=== PATIENT | male | born 1975 | race Caucasian/White ===

== ENCOUNTER 2017-02-22 09:40 | Outpatient (CLI) | payer OTHER ==
[2017-02-22 11:08] LABS: Hemoglobin 15.4 g/dL (14.0-18.0); Mean Corpuscular Hemoglobin 31.5 pg (27.0-31.0); Mean Corpuscular Volume 92.8 fl (80.0-94.0); Mean Platelet Volume 7.7 fL (7.4-10.4); Platelet Count 270 thou/uL (130-400); RBC Distribution Width 13.2 % (11.5-14.5); Red Blood Cell (RBC) Count 4.89 mill/uL (4.70-6.10); White Blood Cell (WBC) Count 8.1 thou/uL (4.8-10.8)
[2017-02-22 11:14] LABS: INR-International Normal Ratio 0.9; PTT 28.6 SEC (22.9-36.1); Prothrombin Time 12.7 SEC (12.0-14.7)
[2017-02-22 11:26] LABS: Anion Gap 14 mmol/L (10-20); BUN (Urea Nitrogen) 11 mg/dL (8.9-20.6); Calc. Creatinine Clearance 0 mL/min (70-130); Calcium 9.8 mg/dL (7.8-10.44); Carbon Dioxide 27 mmol/L (22-29); Chloride 100 mmol/L (98-107); Estimated GFR-MDRD Greater than 90; Glucose 107 mg/dL (70-105); Potassium 4.3 mmol/L (3.5-5.1); Sodium 137 mmol/L (136-145)
--- NOTE | 2017-02-22 17:53 | EKG ---
Test Reason : Blood Pressure : / mmHG Vent. Rate : 081 BPM Atrial Rate : 081 BPM P-R Int : 172 ms QRS Dur : 100 ms QT Int : 372 ms P-R-T Axes : 049 056 031 degrees QTc Int : 432 ms Normal sinus rhythm Normal ECG No previous ECGs available Confirmed by ANGEL PLEITEZ, DR. Palencia ([id number]) on 02/22/2017 5:52:55 PM Referred By: LOCO Confirmed By:DR. Slime ORTIZ MD
== END 2017-02-22 09:41 | disposition home or self-care (01) ==
LOC: LABBT 09:40
PROVIDERS: ATTEND Surgery
DX: Z01.818 Encounter for other preprocedural examination (principal); M51.26 Other intervertebral disc displacement, lumbar region; M48.061 Spinal stenosis, lumbar region without neurogenic claudication
CPT/HCPCS: 80048; 85027; 85610; 85730; 93005; 93010

== ENCOUNTER 2017-03-02 07:15 | Day surgery (SDC) | payer OTHER ==
[2017-02-22 10:03] VITALS: BMI 33.2
[2017-03-02] MEDS ORDERED: Midazolam HCl 2 mg/2 ml Vial ONE (08:40)
[2017-03-02] MEDS ORDERED: Sodium Chloride 0.9% 10 ML ONE (09:30)
[2017-03-02] MEDS ORDERED: Thrombin 5000 UNITS/5 ML VIAL ONE (09:31)
[2017-03-02] MEDS ORDERED: Bacitracin Zinc Ointment 30 gm TUBE ONE (09:31)
[2017-03-02] MEDS ORDERED: CEFAZOLIN/Water 2 GM/20 ML SYRINGE ONE (10:42)
[2017-03-02] MEDS ORDERED: Fentanyl 250 MCG/5 ML VIAL ONE (10:50)
[2017-03-02] MEDS ORDERED: SUGAMMADEX SODIUM 200 MG/2 ML VIAL ONE (11:19)
[2017-03-02] MEDS ORDERED: Rocuronium Bromide 50 MG/5 ML VIAL ONE (12:11)
[2017-03-02] MEDS ORDERED: Glycopyrrolate 0.2 MG/ML 5 ML SYRINGE ONE ×2 (12:41→13:41)
[2017-03-02] MEDS ORDERED: PHENYLEPHRINE-NS 100 MCG/ML 10 ML SYRINGE ONE (12:41)
[2017-03-02] MEDS ORDERED: Lidocaine 1% PF 5 ML VIAL ONE (12:41)
[2017-03-02] MEDS ORDERED: Dexamethasone 20 MG/5 ML VIAL ONE (12:41)
[2017-03-02] MEDS ORDERED: Ondansetron HCl/PF 4 MG/2 ML Vial ONE (12:41)
[2017-03-02] MEDS ORDERED: PROPOFOL 200 MG/20 ML VIAL ONE (12:41)
[2017-03-02] MEDS ORDERED: Promethazine HCl 25 MG/ML VIAL SLOW IVP PRN (13:44)
[2017-03-02] MEDS ORDERED: Ondansetron HCl/PF 4 MG/2 ML Vial IVP PRN ×2 (13:44→14:13)
[2017-03-02] MEDS ORDERED: HYDROmorphone 2 MG/ML VIAL SLOW IVP PRN (13:44)
[2017-03-02] MEDS ORDERED: Promethazine HCl 25 MG/ML VIAL IM PRN ×2 (13:44→14:13)
[2017-03-02] MEDS ORDERED: Meperidine HCl/PF 25 MG/ML VIAL SLOW IVP PRN (13:44)
[2017-03-02] MEDS ORDERED: Morphine Sulfate 2 MG/ML SYRINGE SLOW IVP PRN (13:44)
[2017-03-02] MEDS ORDERED: Milk Of Magnesia 30 ML UDCUP PO PRN (14:13)
[2017-03-02] MEDS ORDERED: traMADol HCl 50 MG TAB PO PRN (14:13)
[2017-03-02] MEDS ORDERED: Acetaminophen 325 MG TAB PO PRN (14:13)
[2017-03-02] MEDS ORDERED: Mag-Al 1200 mg/1200 mg/30 ML UDCUP PO PRN (14:13)
[2017-03-02] MEDS ORDERED: Fleet Enema 133 ML BOT PR PRN (14:13)
[2017-03-02] MEDS ORDERED: Bisacodyl 10 MG SUPP PR PRN (14:13)
[2017-03-02] MEDS ORDERED: Fentanyl 100 MCG/2 ML VIAL ONE (14:45)
--- NOTE | 2017-03-02 14:54 | OP ---
OR: 12 WOUND TYPE: Type 1 wound. SURGEON: Richie Diop M.D. MANAGER EMERGENCY DEPARTMENT: Adonis Jimenez PA-C PREPROCEDURE DIAGNOSES: Lumbar stenosis with disk extrusion with low back and right greater than lef t leg pain. POSTPROCEDURE DIAGNOSES: Lumbar stenosis with disk extrusion with low back and right greater than le ft leg pain. PROCEDURES PERFORMED: 1. L4-L5 laminectomy, partial facetectomy, and foraminotomies of the L4-L5 nerve roots, right side L 4-L5 diskectomy. 2. L5-S1 laminectomy, partial facetectomy, and foraminotomies. 3. Use of operative microscope for microdissection. DESCRIPTION OF PROCEDURE: After informed consent was obtained from the patient, the patient was brou ght to OR 12. Proper patient pause and identification was carried out. He was placed under excellen t general endotracheal anesthesia. Before flipping the patient prone, it was identified that the pat ient had a large likely abdominal hernia with the prior suture from surgery that was an appendectomy that reportedly occurred years ago. Evidently, the patient was unaware of this and that had for the last 4 months scrotal enlargement. I asked Dr. Perez to evaluate this and he diagnosed this hernia and we all felt it safe to proceed with surgery. As such, the patient was placed prone. All approp riate points were padded. We identified the L4, L5, S1 dorsal spines and lamina. A linear anabella was made over this region and this area was sterilely cleansed, prepared, and draped. Proper patient basil se and identification was carried out. The wound was then opened with a combination of sharp, monopo lar and blunt dissection. The L4, L5, S1 dorsal spines and lamina were exposed. Localization film c onfirmed our area of interest. We then performed an L4-L5, L5-S1 laminectomies, partial facetectomie s, foraminotomies for decompression of the L4, L5 and S1 nerve roots. The microscope was then nadine t in the field and working over the shoulder of the right L5 nerve root, identified disk material, th is was removed. There were portions of the disk that are more firm as well. We achieved excellent d ecompression of the common dural tube and all the nerve roots at L4, L5, and S1. Copious irrigation occurred. Hemostasis was maximized throughout. There was no spinal fluid leak. The wound was then closed in anatomic layers following the sprinkling of vancomycin powder. The patient then emerged fr om anesthesia.
[2017-03-02] MEDS: Cyclobenzaprine 10 MG TAB PO PRN (16:32)
[2017-03-02] MEDS: Morphine 5 MG/ML SYRINGE SLOW IVP PRN ×4 (16:37→22:28)
[2017-03-02] MEDS: Sodium Chloride 0.9% 1,000 ML IV SCH ×2 (16:41→21:51)
[2017-03-02] MEDS: CEFAZOLIN/Water 2 GM/20 ML SYRINGE SLOW IVP SCH (17:37)
[2017-03-02] MEDS: HYDROcodone/Acetaminophen 7.5/325 mg Tablet PO PRN ×2 (18:17→21:51)
[2017-03-03] MEDS: HYDROcodone/Acetaminophen 7.5/325 mg Tablet PO PRN ×3 (02:11→11:54)
[2017-03-03] MEDS: CEFAZOLIN/Water 2 GM/20 ML SYRINGE SLOW IVP SCH (02:11)
[2017-03-03] MEDS: Morphine 5 MG/ML SYRINGE SLOW IVP PRN (02:18)
[2017-03-03] MEDS: Cyclobenzaprine 10 MG TAB PO PRN ×2 (02:43→07:47)
[2017-03-03 03:37] VITALS: TEMP 98
[2017-03-03 08:18] VITALS: BP 138/63
[2017-03-03] MEDS ORDERED: Fish Oil 1,000 MG CAP PO SCH (09:00)
[2017-03-03] MEDS ORDERED: Lisinopril/Hydrochlorothiazide 20 mg/12.5 mg Tablet PO SCH (09:00)
--- NOTE | 2017-03-03 09:03 | PRG ---
DATE OF SERVICE: 03/03/2017 Mr. Nash is doing well postoperative day 1 with improvement in his leg pain. As expected, he has some lumbar pain. He was found to have a hernia that Dr. Perez diagnosed prior to our surgery. We will arrange for followup with Dr. Perez. We went over both intra and postoperative issues. We w ill plan for dismissal. On exam he has good strength in his lower extremities.
== END 2017-03-03 12:18 | disposition home or self-care (01) ==
LOC: SDC 07:15 → 3SE 16:21 → SDC 03-03 12:18
PROVIDERS: ATTEND Surgery
PROC: 00NY0ZZ Release Lumbar Spinal Cord, Open Approach (ICD-10-PCS; principal; 2017-03-02)
DX: M48.061 Spinal stenosis, lumbar region without neurogenic claudication (principal); M51.26 Other intervertebral disc displacement, lumbar region
CPT/HCPCS: 76001; J2270; A4216; J0131; J1100; J2001; J2250; J2405; J2704; J3010; J3370; J3490